=== PATIENT | male | born 1940 | race Caucasian/White ===

== ENCOUNTER 2020-09-13 22:43 | Inpatient (IN) | payer MEDICARE, MEDICAID ==
[~2020-09-13] VITALS: Ht 180.3 cm; Wt 54.5 kg
--- NOTE | 2020-09-13 23:16 | NUR ---
patient arriving with oconnor catheter in place and OG. OG connected to intermittent low suction and dark brown/black drainage noted in tubing; 300mL. OG secured with tape from previous facility. Dr. Lugo to bedside. will obtain BC and then start IV abx. patient A&Ox4 and aware of plan. Dr. Lugo informed patient that patient's diagnosis is in need of surgery FRANK and patient agreed to this plan. call rolon in reach. safety maintained. Addendum: 09/13/20 at 2357 by ADOUGHTY NG not OG Addendum: 09/15/20 at 0319 by ADOUGHTY patient has NG tube not OG
[2020-09-13] MEDS ORDERED: POTA20TA14 PO (23:22)
[2020-09-13] MEDS ORDERED: MULT1CAP24 PO (23:22)
[2020-09-13] MEDS ORDERED: FURO20TA3 PO (23:22)
[2020-09-13] MEDS ORDERED: PROT54LI PO (23:22)
[2020-09-13] MEDS ORDERED: TAMS-11 PO (23:22)
[2020-09-13] MEDS ORDERED: OMEP-110 PO (23:22)
[2020-09-13] MEDS ORDERED: HYDR-3237 PO (23:22)
[2020-09-13] MEDS ORDERED: TRAZ50TA66 PO (23:22)
[2020-09-13] MEDS ORDERED: ONDA4TAB7 PO (23:22)
[2020-09-13] MEDS ORDERED: APIX5TAB PO (23:22)
[2020-09-13] MEDS ORDERED: PIPERACILLIN/TAZO/PMX 3.375GM 50 ML ONE (23:26)
[2020-09-13] MEDS ORDERED: SODIUM CHLORIDE 0.9% 1,000ML IVBOLUS ONE (23:30)
[2020-09-13] MEDS ORDERED: PIPERACILLIN/TAZO/PMX 3.375GM 50 ML IV ONE (23:30)
--- NOTE | 2020-09-14 00:20 | NUR ---
PATIENT RESTING IN BED ON 4L VIA NC IN NAD. CALL DESAI IN REACH. 150ML REMOVED FROM SCHUMACHER BAG. IV NS BOLUS INFUSING. CALL DESAI IN REACH. SAFETY MAINTAINED. NO COCCYX SORES/ULCERS NOTED ON ARRIVAL TO FACILITY. SLIGHT PINKNESS/BLANCHABLE WITH SCARRING TO BUTTOCKS/COCCYX FROM RECENT ULCER
--- NOTE | 2020-09-14 00:30 | NUR ---
REPORT GIVEN TO DAMEON MATT
[2020-09-14] MEDS ORDERED: LABETALOL 5MG/ML, 20ML IVPush PRN (01:00)
[2020-09-14] MEDS ORDERED: DOCUSATE 100 MG CAPSULE PO PRN (01:00)
[2020-09-14] MEDS ORDERED: LIDODERM 5% PATCH TD PRN (01:00)
[2020-09-14] MEDS ORDERED: ACETAMINOPHEN 325 MG TABLET PO PRN (01:00)
[2020-09-14] MEDS ORDERED: ONDANSETRON 2MG/ML, 2ML IVPush PRN (01:00)
[2020-09-14] MEDS ORDERED: MELATONIN 5 MG TABLET PO PRN (01:00)
[2020-09-14] MEDS ORDERED: morphine SULFATE 10 MG/ML, 1ML IVPush PRN (01:00)
--- NOTE | 2020-09-14 01:25 | NUR ---
PATIENT RESTING IN BED IN NAD. TRANSFERRING UP TO INPATIENT UNIT WITH STAFF. WEANED PATIENT FROM 4L VIA NC, HE WAS AT 96% AND HAS PMH OF COPD, DOWN TO 3L AND 92%. TOLERATED WELL. ALL PERSONAL BELONGINGS SENT WITH PATIENT UP TO UNIT. SEPSIS FLOWHSEET SENT WITH PATIENT I STARTED THIS AND PATIENT DID NOT SCORE IN SECTION C. PATIENT IS REQUIRING MORE OXYGEN VIA NC ON ARRIVAL BUT I WAS WEANING HIM DOWN TO BASELINE AND WAS TOLERATING THIS.
--- NOTE | 2020-09-14 01:32 | NUR ---
ATTEMPTING REPORT TO 4W DUE TO SUDDEN BED CHANGE. PATIENT WAS TRANSFERRED TO 3NE THIS WAS THE ROOM ASSIGNED. I GAVE REPORT TO DAMEON MATT. ON ARRIVAL PATIENT HAD A BED CHANGE. PATIENT TRANSFERRED TO THIS ROOM ON 4W WITHOUT REPORT BEING GIVEN THIS RN WAS NOT NOTIFIED OF CHANGE PRIOR TO TRANSFER
--- NOTE | 2020-09-14 01:59 | NUR ---
REPORT GIVEN TO ANTIONE MATT ON 4W
[2020-09-14 02:24] VITALS: BP 108/59
[2020-09-14] MEDS: SODIUM CHLORIDE 0.9% 1,000 ML IV SCH ×2 (02:36→13:35)
[2020-09-14 05:01] LABS: BASOPHILS % (AUTO) 0 % (0-1); EOSINOPHILS % (AUTO) 0 % (1-7); LYMPHOCYTES % (AUTO) 9 % (22-44); MEAN CORPUSCULAR HGB CONC 34.6 g/dL (33.2-36.2); MEAN PLATELET VOLUME 8.2 fL (7.4-10.4); MONOCYTES % (AUTO) 9 % (2-9); NEUTROPHILS % (AUTO) 81 % (42-75); PLATELET COUNT 212 x10^3/uL (130-400); RED BLOOD COUNT 4.25 x10^6/uL (4.38-5.82); RED CELL DISTRIBUTION WIDTH 12.6 % (9.4-14.8)
[2020-09-14 05:10] LABS: MD NO
[2020-09-14 05:13] LABS: ALANINE AMINOTRANSFERASE 13 U/L (12-78); ALBUMIN 3.3 g/dL (3.4-5.0); ANION GAP 7 mmol/L (5-15); CALCIUM 9.7 mg/dL (8.5-10.1); CHLORIDE 97 mmol/L (98-107); CREATININE 1.66 mg/dL (0.7-1.3)
[2020-09-14 05:23] LABS: ALKALINE PHOSPHATASE 67 U/L (45-117); BILIRUBIN,TOTAL 0.6 mg/dL (0.2-1.0); FREE T4 (FREE THYROXINE) 1.61 ng/dL (0.76-1.46); TOTAL PROTEIN 6.8 g/dL (6.4-8.2)
[2020-09-14] MEDS: PIPERACILLIN/TAZO/PMX 3.375GM 50 ML IV SCH ×4 (05:43→23:13)
[2020-09-14 07:20] VITALS: BP 98/58
[2020-09-14 12:47] VITALS: BP 95/65
[2020-09-14 21:02] VITALS: BP 83/56
[2020-09-14 21:09] VITALS: BP 120/71
[2020-09-15 01:33] VITALS: BP 66/44
[2020-09-15] MEDS ORDERED: SODIUM CHLORIDE 0.9%, 500ML IVBOLUS ONE (02:00)
[2020-09-15 02:15] VITALS: BP 58/40
[2020-09-15 02:27] VITALS: BP 60/40
[2020-09-15 02:29] VITALS: BP 68/42
[2020-09-15] MEDS ORDERED: SODIUM BICARB 8.4%, 50ML SYRINGE ONE (03:14)
[2020-09-15] MEDS ORDERED: CALCIUM CHLORIDE 10%, 10ML SYR ONE (03:14)
[2020-09-15] MEDS ORDERED: MAGNESIUM SULFATE 1 GM/2 ML ONE (03:14)
[2020-09-15] MEDS ORDERED: CODE BLUE RESPONSE XX ONE (03:14)
[2020-09-15] MEDS ORDERED: EPINEPHRINE SYRINGE 0.1 MG/ML, 10ML ONE ×2 (03:14→11:04)
[2020-09-15] MEDS ORDERED: AMIODARONE 50 MG/ML, 3ML ONE (03:14)
== END 2020-09-15 05:20 | disposition expired | DRG 388 ==
LOC: ED 23:24 → EDIP 23:50 → 4WST 09-14 02:10
PROVIDERS: ADMIT Internal Medicine; ATTEND Internal Medicine
PROC: 5A12012 Performance of Cardiac Output, Single, Manual (ICD-10-PCS; principal; 2020-09-15)
PROC: 5A2204Z Restoration of Cardiac Rhythm, Single (ICD-10-PCS; 2020-09-15)
PROC: 0BH17EZ Insertion of Endotracheal Airway into Trachea, Via Natural or Artificial Opening (ICD-10-PCS; 2020-09-15)
DX: K56.699 Other intestinal obstruction unspecified as to partial versus complete obstruction (principal); N17.0 Acute kidney failure with tubular necrosis; E43 Unspecified severe protein-calorie malnutrition; I49.02 Ventricular flutter; J96.01 Acute respiratory failure with hypoxia; K55.9 Vascular disorder of intestine, unspecified; Z68.1 Body mass index [BMI] 19.9 or less, adult; R64 Cachexia; E11.65 Type 2 diabetes mellitus with hyperglycemia; F03.90 Unspecified dementia, unspecified severity, without behavioral disturbance, psychotic disturbance, mood disturbance, and anxiety; I11.0 Hypertensive heart disease with heart failure; I46.2 Cardiac arrest due to underlying cardiac condition; I49.01 Ventricular fibrillation; I50.9 Heart failure, unspecified; J44.9 Chronic obstructive pulmonary disease, unspecified; Z96.649 Presence of unspecified artificial hip joint; K21.9 Gastro-esophageal reflux disease without esophagitis; Z79.01 Long term (current) use of anticoagulants; Z85.038 Personal history of other malignant neoplasm of large intestine; Z86.718 Personal history of other venous thrombosis and embolism; Z87.891 Personal history of nicotine dependence; K56.2 Volvulus
CPT/HCPCS: 36415; 74018; 74250; 80053; 83605; 84439; 84443; 85025; 87040; 92950; 93005; 96374; 99285; G0378; J2543; J3475; J0282; J7030; J7040